=== PATIENT | male | born 1965 | race African-American/Black ===

== ENCOUNTER 2023-04-21 17:26 | Emergency (ER) | payer OTHER ==
[~2023-04-21] VITALS: Ht 180.3 cm; Wt 134.0 kg
[2023-04-21 18:01] VITALS: TEMP 98.6; O2SAT 100
[2023-04-21 18:30] VITALS: BP 135/77; PULSE 80; RESP 16
[2023-04-21] MEDS ORDERED: LIDOCAINE 5% PATCH TOP SCH (18:30)
[2023-04-21] MEDS ORDERED: KETOROLAC 30MG/ML VIAL IM ONE (18:30)
[2023-04-21] MEDS ORDERED: CYCL5TAB MT (18:34)
== END 2023-04-21 19:12 | disposition home or self-care (01) ==
LOC: ER 17:26
DX: M54.2 Cervicalgia (principal); I10 Essential (primary) hypertension; E11.9 Type 2 diabetes mellitus without complications; Z86.39 Personal history of other endocrine, nutritional and metabolic disease; Z88.6 Allergy status to analgesic agent; Z98.890 Other specified postprocedural states
CPT/HCPCS: 99283; 96372; J1885; 90471

== ENCOUNTER 2024-02-14 14:10 | Emergency (ER) | payer BC, MEDICAID ==
[~2024-02-14] VITALS: Ht 182.9 cm; Wt 127.0 kg
[~2024-02-14 14:10] MED LIST: CYCL5TAB MT
[2024-02-14 14:24] VITALS: PULSE 100; TEMP 98.2; O2SAT 99
[2024-02-14 15:32] VITALS: BP 121/71; RESP 18
[2024-02-14] MEDS: LIDOCAINE 5% PATCH TOP SCH (15:32)
[2024-02-14] MEDS ORDERED: ACET-3524 PO (15:42)
== END 2024-02-14 16:27 | disposition home or self-care (01) ==
LOC: ER 14:10
DX: M54.32 Sciatica, left side (principal); M79.605 Pain in left leg; E11.9 Type 2 diabetes mellitus without complications; I10 Essential (primary) hypertension; Z90.49 Acquired absence of other specified parts of digestive tract
CPT/HCPCS: 99283

== ENCOUNTER 2024-11-30 15:10 | Emergency (ER) | payer OTHER, BC ==
[~2024-11-30] VITALS: Ht 172.7 cm; Wt 110.0 kg
[~2024-11-30 15:10] MED LIST changes: +ACET-3524 PO; -CYCL5TAB MT; +CYCL5TAB3 MT
[2024-11-30 15:15] VITALS: BP 159/89; TEMP 37.1; O2SAT 96
[2024-11-30 15:16] VITALS: PULSE 96; RESP 18; O2SAT 96
== END 2024-11-30 16:27 | disposition home or self-care (01) ==
LOC: ER 15:10
DX: S42.291A Other displaced fracture of upper end of right humerus, initial encounter for closed fracture (principal); E11.9 Type 2 diabetes mellitus without complications; I10 Essential (primary) hypertension; Z90.49 Acquired absence of other specified parts of digestive tract; Z96.659 Presence of unspecified artificial knee joint; Z96.649 Presence of unspecified artificial hip joint; X58.XXXA Exposure to other specified factors, initial encounter; Y93.89 Activity, other specified; Y92.89 Other specified places as the place of occurrence of the external cause; Y99.8 Other external cause status
CPT/HCPCS: 73030; 99283; L3670